=== PATIENT | male | born 2000 | race Two or more races ===

== ENCOUNTER 2021-10-13 13:44 | Emergency (ER) | payer BC, OTHER | END 2021-10-13 15:30 | disposition home or self-care (01) | LOC: JD.ED 13:44 | DX: S67.01XA Crushing injury of right thumb, initial encounter (principal); S67.02XA Crushing injury of left thumb, initial encounter; Z86.16 Personal history of COVID-19; W20.8XXA Other cause of strike by thrown, projected or falling object, initial encounter; Y99.0 Civilian activity done for income or pay | CPT/HCPCS: 73130-26-LT; 73130-26-RT; 73130-LT; 73130-RT; 99283 ==

== ENCOUNTER 2022-02-07 11:59 | Emergency (ER) | payer BC, OTHER ==
[2022-02-07] MEDS ORDERED: Sodium Chloride 0.9% 10 ML Syringe FLUSH PRN (12:35)
[2022-02-07] MEDS ORDERED: Sodium Chloride 0.9% 1,000 ML IV STA ×2 (13:03→14:27)
[2022-02-07] MEDS ORDERED: Ondansetron 4 MG/2 ML SDV IVPUSH ONE (13:03)
[2022-02-07 13:43] LABS: ESTIMATED GFR 109 mL/min (>60)
[2022-02-07 13:53] LABS: CORONAVIRUS COVID-19 NAA NEGATIVE (NEGATIVE)
[2022-02-07] MEDS ORDERED: Metoclopramide 10 MG/2 ML SDV IVPUSH ONE (14:27)
== END 2022-02-07 16:15 | disposition home or self-care (01) ==
LOC: JD.ED 11:59
DX: E86.0 Dehydration (principal); R11.2 Nausea with vomiting, unspecified; F17.210 Nicotine dependence, cigarettes, uncomplicated; Z20.822 Contact with and (suspected) exposure to COVID-19
CPT/HCPCS: 0240U; 36415; 80053; 81001; 85025; 86140; 93005; 96361; 96374; 96375; 99284; J2405; J2765; J3490; J7030

== ENCOUNTER 2022-06-19 12:09 | Emergency (ER) | payer BC ==
[2022-06-19 17:01] LABS: C. TRACHOMATIS BY PCR NOT DETECTED; N. GONORRHOEAE BY PCR NOT DETECTED
== END 2022-06-19 17:40 | disposition home or self-care (01) ==
LOC: JD.ED 12:09
DX: K12.1 Other forms of stomatitis (principal); Z86.16 Personal history of COVID-19
CPT/HCPCS: 87491; 87591; 87651-QW; 87801; 99283

== ENCOUNTER 2022-06-22 12:00 | Emergency (ER) | payer BC ==
[2022-06-22] MEDS ORDERED: Sodium Chloride 0.9% 1,000 ML IV ONE (12:29)
[2022-06-22] MEDS ORDERED: HYDROmorphone 0.5 MG/0.5 ML Syringe IVPUSH ONE (12:29)
[2022-06-22] MEDS ORDERED: Ketorolac 30 MG/ML SDV IVPUSH ONE (13:27)
[2022-06-22] MEDS ORDERED: Ketorolac 60 MG/2 ML SDV IM ONE (13:38)
== END 2022-06-22 13:50 | disposition home or self-care (01) ==
LOC: JD.ED 12:00
DX: B00.9 Herpesviral infection, unspecified (principal); F17.210 Nicotine dependence, cigarettes, uncomplicated; Z86.16 Personal history of COVID-19
CPT/HCPCS: 96372; 96374; 99282; J1170; J1885; J7030; 99283